=== PATIENT | female | born 1995 | race Caucasian/White ===

== ENCOUNTER 2018-03-08 09:22 | Day surgery (SDC) | payer OTHER ==
[2018-03-08] MEDS ORDERED: LIDOCAINE 4% SOLUTION 50 ML BTL (10:20)
[2018-03-08] MEDS ORDERED: MIDAZOLAM 1 MG/ML 2 ML INJ ×2 (11:00)
[2018-03-08] MEDS ORDERED: FENTAnyl 50 MCG/ML VIAL (11:00)
== END 2018-03-08 15:02 | disposition home or self-care (01) ==
LOC: GIL 09:22
DX: K29.50 Unspecified chronic gastritis without bleeding (principal)
CPT/HCPCS: 43239; 84703; 88305; 88312